=== PATIENT | female | born 1950 | race Caucasian/White ===

== ENCOUNTER 2016-11-25 22:22 | Inpatient (IN) | payer MEDICARE, OTHER ==
[~2016-11-25 22:22] MED LIST: ASPIRIN EC81 MG PO; CALCIUM CARBON600 M2 PO; COMPAZINE10 MG PO; DICYCLOMINE HCL20 M1 PO; EMERGE; HYDROXYCHLOROQ200 M2 PO; IRON1 TA1 PO; LEVAQUIN500 M1 PO; MULTIVITAMINS1 EAC7 PO; NORCO 5-325 TA1 EACH PO; NORCO 5/3251 TAB PO; VITAMIN D3400 UNI5 PO; ZESTRIL5 M1 PO; ZOCOR20 MG PO; ZOFRAN4 M2 PO
[2016-11-25] MEDS ORDERED: DICLOFENAC SODI75 M2 PO (22:53)
[2016-11-26 00:23] LABS: BASO % 0.5 % (0-2); EOS % 0.3 % (0-7); HGB-HEMOGLOBIN 11.2 gm/dl (12.0-15.5); IMMATURE GRANULOCYTES ABSOLUTE 0.01 tho/cmm (0-0.03); IMMATURE GRANULOCYTES PERCENT 0.3 % (0-0.3); LYMPH % 15.3 % (20-45); LYMPH ABSOLUTE COUNT 0.6 tho/cmm (0.8-4.5); MCH (MEAN CORPUSCULAR HGB) 31.7 pg (28.0-32.0); MCHC MEAN CORPUSCULAR HGB CONC 33.9 % (32.0-36.0); MCV (MEAN CELL VOLUME) 93.5 fl (82.0-96.0); MEAN PLATELET VOLUME 10.7 cmc (9.4-12.4); MONO % 5.3 % (0-12); MONOCYTE ABSOLUTE COUNT 0.2 tho/cmm (0.0-1.2); NEUTROPHIL ABSOLUTE COUNT 3.1 tho/cmm (1.6-8.0); NEUTROPHIL-AUTOMATED 3.1 tho/cmm (1.6-8.0); NEUTROPHILS % 78.3 % (40-80); PLATELET COUNT 291 tho/cmm (150-450); RED BLOOD COUNT 3.53 mil/cmm (4.00-5.20); RED CELL DISTRIBUTION WIDTH 12.5 % (12.4-16.4)
[2016-11-26 00:39] LABS: ALB/GLOB RATIO 1.7 (0.8-2.0); ALBUMIN 3.5 g/dl (3.5-5.2); ALKALINE PHOSPHATASE 47 U/L (35-104); ALT/SGPT 10 U/L (0-33); AMYLASE 68 U/L (28-100); ANION GAP 13 mmol/L (5-15); AST/SGOT 13 U/L (0-32); BLOOD UREA NITROGEN 18 mg/dl (6-25); CARBON DIOXIDE-VENOUS 22 mmol/L (22-29); CHLORIDE 98 mmol/L (98-110); CREATININE 1.06 mg/dl (0.67-1.17); GLUCOSE 132 mg/dl (65-120); POTASSIUM 3.5 mmol/L (3.4-5.0); SODIUM 133 mmol/L (135-146); eGFR VALUE FOR BLACK >60 mL/Min
[2016-11-26 00:40] LABS: BILIRUBIN,TOTAL 0.5 mg/dl (0-1.0); LIPASE 69 U/L (13-73)
[2016-11-26 05:59] LABS: HCT-HEMATOCRIT 32.5 % (34.0-49.0); HGB-HEMOGLOBIN 10.9 gm/dl (12.0-15.5); MCH (MEAN CORPUSCULAR HGB) 31.6 pg (28.0-32.0); MCHC MEAN CORPUSCULAR HGB CONC 33.5 % (32.0-36.0); MCV (MEAN CELL VOLUME) 94.2 fl (82.0-96.0); MEAN PLATELET VOLUME 10.8 cmc (9.4-12.4); PLATELET COUNT 198 tho/cmm (150-450); RED BLOOD COUNT 3.45 mil/cmm (4.00-5.20); RED CELL DISTRIBUTION WIDTH 12.6 % (12.4-16.4)
[2016-11-26 06:11] LABS: WHITE BLOOD COUNT 1.3 tho/cmm (4.0-10.0)
[2016-11-26 09:12] LABS: BAND % 43 % (0-20); BAND ABSOLUTE COUNT 0.6 tho/cmm (0-2.0)
[2016-11-26 16:38] LABS: INR 1.3 INR (0.9-1.1); PROTHROMBIN TIME 14.9 SECONDS (9.0-13.6)
[2016-11-26 16:53] LABS: HCT-HEMATOCRIT 31.1 % (34.0-49.0); HGB-HEMOGLOBIN 10.5 gm/dl (12.0-15.5); LYMPH % 12.5 % (20-45); LYMPH ABSOLUTE COUNT 0.3 tho/cmm (0.8-4.5); MCH (MEAN CORPUSCULAR HGB) 31.2 pg (28.0-32.0); MCHC MEAN CORPUSCULAR HGB CONC 33.8 % (32.0-36.0); MCV (MEAN CELL VOLUME) 92.3 fl (82.0-96.0); MEAN PLATELET VOLUME 10.8 cmc (9.4-12.4); MONO % 0.9 % (0-12); NEUTROPHILS % 86.6 % (40-80); PLATELET COUNT 224 tho/cmm (150-450); RED BLOOD COUNT 3.37 mil/cmm (4.00-5.20); RED CELL DISTRIBUTION WIDTH 12.7 % (12.4-16.4)
[2016-11-26 16:54] LABS: WHITE BLOOD COUNT 2.3 tho/cmm (4.0-10.0)
[2016-11-26 16:58] LABS: ALB/GLOB RATIO 1.1 (0.8-2.0); ALBUMIN 2.2 g/dl (3.5-5.2); ALKALINE PHOSPHATASE 28 U/L (35-104); ALT/SGPT 18 U/L (0-33); ANION GAP 11 mmol/L (5-15); AST/SGOT 23 U/L (0-32); BILIRUBIN,TOTAL 0.5 mg/dl (0-1.0); BLOOD UREA NITROGEN 21 mg/dl (6-25); CALCIUM 7.6 mg/dl (8.6-10.2); CARBON DIOXIDE-VENOUS 18 mmol/L (22-29); CHLORIDE 106 mmol/L (98-110); CREATININE 0.98 mg/dl (0.67-1.17); GLUCOSE 157 mg/dl (65-120); POTASSIUM 4.3 mmol/L (3.4-5.0); SODIUM 135 mmol/L (135-146); eGFR VALUE FOR BLACK >60 mL/Min
[2016-11-26 17:13] LABS: PROCALCITONIN 23.24 ng/ml (0.05-0.09)
[2016-11-27 05:35] LABS: HCT-HEMATOCRIT 27.6 % (34.0-49.0); HGB-HEMOGLOBIN 9.3 gm/dl (12.0-15.5); MCH (MEAN CORPUSCULAR HGB) 31.7 pg (28.0-32.0); MCHC MEAN CORPUSCULAR HGB CONC 33.7 % (32.0-36.0); MCV (MEAN CELL VOLUME) 94.2 fl (82.0-96.0); NEUTROPHIL-AUTOMATED 5.5 tho/cmm (1.6-8.0); PLATELET COUNT 207 tho/cmm (150-450); RED BLOOD COUNT 2.93 mil/cmm (4.00-5.20)
[2016-11-27 05:45] LABS: WHITE BLOOD COUNT 6.4 tho/cmm (4.0-10.0)
[2016-11-27 05:48] LABS: ANION GAP 11 mmol/L (5-15); BLOOD UREA NITROGEN 25 mg/dl (6-25); CALCIUM 7.8 mg/dl (8.6-10.2); CARBON DIOXIDE-VENOUS 21 mmol/L (22-29); CHLORIDE 106 mmol/L (98-110); CREATININE 0.86 mg/dl (0.67-1.17); GLUCOSE 153 mg/dl (65-120); POTASSIUM 4.4 mmol/L (3.4-5.0); SODIUM 138 mmol/L (135-146); eGFR VALUE FOR BLACK >60 mL/Min
[2016-11-27 06:50] LABS: BAND % 58 % (0-20); BAND ABSOLUTE COUNT 3.7 tho/cmm (0-2.0); WBC MORPHOLOGY VACUOLES
[2016-11-27 10:40] LABS: TROPONIN T <0.01 ng/ml (<0.01)
[2016-11-27 11:06] LABS: MAGNESIUM 1.7 mg/dl (1.7-2.5); PHOSPHOROUS 2.9 mg/dl (2.7-4.5)
[2016-11-27 14:13] LABS: T4 (THYROXINE) 4.8 ug/dl (4.6-12.0); TSH-THYROID STIMULATING HORM. 1.88 uIU/ml (0.40-5.50)
[2016-11-28 05:09] LABS: EOS % 0.2 % (0-7); HCT-HEMATOCRIT 24.4 % (34.0-49.0); HGB-HEMOGLOBIN 8.2 gm/dl (12.0-15.5); IMMATURE GRANULOCYTES ABSOLUTE 0.03 tho/cmm (0-0.03); IMMATURE GRANULOCYTES PERCENT 0.5 % (0-0.3); LYMPH % 8.4 % (20-45); LYMPH ABSOLUTE COUNT 0.5 tho/cmm (0.8-4.5); MCH (MEAN CORPUSCULAR HGB) 31.5 pg (28.0-32.0); MCHC MEAN CORPUSCULAR HGB CONC 33.6 % (32.0-36.0); MCV (MEAN CELL VOLUME) 93.8 fl (82.0-96.0); MEAN PLATELET VOLUME 10.8 cmc (9.4-12.4); MONO % 8.7 % (0-12); MONOCYTE ABSOLUTE COUNT 0.6 tho/cmm (0.0-1.2); NEUTROPHIL ABSOLUTE COUNT 5.3 tho/cmm (1.6-8.0); NEUTROPHIL-AUTOMATED 5.3 tho/cmm (1.6-8.0); NEUTROPHILS % 82.2 % (40-80); PLATELET COUNT 202 tho/cmm (150-450); WHITE BLOOD COUNT 6.5 tho/cmm (4.0-10.0)
[2016-11-28 05:28] LABS: ALKALINE PHOSPHATASE 32 U/L (35-104); ALT/SGPT 11 U/L (0-33); ANION GAP 7 mmol/L (5-15); AST/SGOT 12 U/L (0-32); BILIRUBIN,TOTAL 0.3 mg/dl (0-1.0); BLOOD UREA NITROGEN 13 mg/dl (6-25); CALCIUM 7.8 mg/dl (8.6-10.2); CARBON DIOXIDE-VENOUS 24 mmol/L (22-29); CHLORIDE 104 mmol/L (98-110); CREATININE 0.61 mg/dl (0.67-1.17); GLUCOSE 95 mg/dl (65-120); PHOSPHOROUS 1.8 mg/dl (2.7-4.5); POTASSIUM 3.8 mmol/L (3.4-5.0); SODIUM 135 mmol/L (135-146); eGFR VALUE FOR BLACK >60 mL/Min
[2016-11-29 08:47] LABS: BASO % 0.1 % (0-2); EOS % 0.4 % (0-7); IMMATURE GRANULOCYTES ABSOLUTE 0.02 tho/cmm (0-0.03); IMMATURE GRANULOCYTES PERCENT 0.2 % (0-0.3); LYMPH % 6.3 % (20-45); LYMPH ABSOLUTE COUNT 0.6 tho/cmm (0.8-4.5); MCH (MEAN CORPUSCULAR HGB) 32.1 pg (28.0-32.0); MCHC MEAN CORPUSCULAR HGB CONC 34.6 % (32.0-36.0); MCV (MEAN CELL VOLUME) 92.9 fl (82.0-96.0); MEAN PLATELET VOLUME 10.2 cmc (9.4-12.4); MONO % 7.9 % (0-12); MONOCYTE ABSOLUTE COUNT 0.8 tho/cmm (0.0-1.2); NEUTROPHIL ABSOLUTE COUNT 8.1 tho/cmm (1.6-8.0); NEUTROPHIL-AUTOMATED 8.1 tho/cmm (1.6-8.0); NEUTROPHILS % 85.1 % (40-80); PLATELET COUNT 243 tho/cmm (150-450); RED CELL DISTRIBUTION WIDTH 12.7 % (12.4-16.4); WHITE BLOOD COUNT 9.5 tho/cmm (4.0-10.0)
[2016-11-29 09:03] LABS: ANION GAP 8 mmol/L (5-15); BLOOD UREA NITROGEN 9 mg/dl (6-25); CALCIUM 7.7 mg/dl (8.6-10.2); CARBON DIOXIDE-VENOUS 27 mmol/L (22-29); CHLORIDE 100 mmol/L (98-110); CREATININE 0.54 mg/dl (0.67-1.17); GLUCOSE 123 mg/dl (65-120); SODIUM 135 mmol/L (135-146); eGFR VALUE FOR BLACK >60 mL/Min
[2016-11-30 05:34] LABS: BASO % 0.1 % (0-2); EOS % 4.3 % (0-7); EOSINOPHIL ABSOLUTE COUNT 0.3 tho/cmm (0.0-0.7); HCT-HEMATOCRIT 24.2 % (34.0-49.0); HGB-HEMOGLOBIN 8.2 gm/dl (12.0-15.5); IMMATURE GRANULOCYTES ABSOLUTE 0.02 tho/cmm (0-0.03); IMMATURE GRANULOCYTES PERCENT 0.3 % (0-0.3); LYMPH % 13.5 % (20-45); LYMPH ABSOLUTE COUNT 0.9 tho/cmm (0.8-4.5); MCH (MEAN CORPUSCULAR HGB) 31.7 pg (28.0-32.0); MCHC MEAN CORPUSCULAR HGB CONC 33.9 % (32.0-36.0); MCV (MEAN CELL VOLUME) 93.4 fl (82.0-96.0); MEAN PLATELET VOLUME 9.9 cmc (9.4-12.4); MONO % 13.1 % (0-12); MONOCYTE ABSOLUTE COUNT 0.9 tho/cmm (0.0-1.2); NEUTROPHIL ABSOLUTE COUNT 4.6 tho/cmm (1.6-8.0); NEUTROPHIL-AUTOMATED 4.6 tho/cmm (1.6-8.0); NEUTROPHILS % 68.7 % (40-80); PLATELET COUNT 227 tho/cmm (150-450); RED BLOOD COUNT 2.59 mil/cmm (4.00-5.20); WHITE BLOOD COUNT 6.7 tho/cmm (4.0-10.0)
[2016-11-30 05:46] LABS: ANION GAP 10 mmol/L (5-15); BLOOD UREA NITROGEN 7 mg/dl (6-25); CALCIUM 7.5 mg/dl (8.6-10.2); CARBON DIOXIDE-VENOUS 26 mmol/L (22-29); CHLORIDE 102 mmol/L (98-110); CREATININE 0.55 mg/dl (0.67-1.17); GLUCOSE 87 mg/dl (65-120); MAGNESIUM 1.7 mg/dl (1.7-2.5); POTASSIUM 3.4 mmol/L (3.4-5.0); SODIUM 138 mmol/L (135-146); eGFR VALUE FOR BLACK >60 mL/Min
[2016-12-01 05:50] LABS: ANION GAP 8 mmol/L (5-15); BLOOD UREA NITROGEN 6 mg/dl (6-25); CALCIUM 7.6 mg/dl (8.6-10.2); CARBON DIOXIDE-VENOUS 28 mmol/L (22-29); CHLORIDE 98 mmol/L (98-110); CREATININE 0.55 mg/dl (0.67-1.17); GLUCOSE 95 mg/dl (65-120); MAGNESIUM 1.7 mg/dl (1.7-2.5); POTASSIUM 3.8 mmol/L (3.4-5.0); SODIUM 134 mmol/L (135-146); eGFR VALUE FOR BLACK >60 mL/Min
[2016-12-01 06:03] LABS: BASO % 0.2 % (0-2); EOS % 4.9 % (0-7); EOSINOPHIL ABSOLUTE COUNT 0.3 tho/cmm (0.0-0.7); HGB-HEMOGLOBIN 7.9 gm/dl (12.0-15.5); IMMATURE GRANULOCYTES ABSOLUTE 0.02 tho/cmm (0-0.03); IMMATURE GRANULOCYTES PERCENT 0.4 % (0-0.3); LYMPH % 18.5 % (20-45); LYMPH ABSOLUTE COUNT 1.1 tho/cmm (0.8-4.5); MCH (MEAN CORPUSCULAR HGB) 31.1 pg (28.0-32.0); MCHC MEAN CORPUSCULAR HGB CONC 33.3 % (32.0-36.0); MCV (MEAN CELL VOLUME) 93.3 fl (82.0-96.0); MEAN PLATELET VOLUME 9.9 cmc (9.4-12.4); MONO % 13.9 % (0-12); MONOCYTE ABSOLUTE COUNT 0.8 tho/cmm (0.0-1.2); NEUTROPHIL ABSOLUTE COUNT 3.5 tho/cmm (1.6-8.0); NEUTROPHIL-AUTOMATED 3.5 tho/cmm (1.6-8.0); NEUTROPHILS % 62.1 % (40-80); PLATELET COUNT 228 tho/cmm (150-450); RED BLOOD COUNT 2.54 mil/cmm (4.00-5.20); RED CELL DISTRIBUTION WIDTH 13.2 % (12.4-16.4); WHITE BLOOD COUNT 5.7 tho/cmm (4.0-10.0)
[2016-12-01 06:10] LABS: HCT-HEMATOCRIT 23.7 % (34.0-49.0)
[2016-12-02 04:06] LABS: BASO % 0.3 % (0-2); EOS % 4.5 % (0-7); EOSINOPHIL ABSOLUTE COUNT 0.3 tho/cmm (0.0-0.7); HCT-HEMATOCRIT 24.9 % (34.0-49.0); HGB-HEMOGLOBIN 8.2 gm/dl (12.0-15.5); IMMATURE GRANULOCYTES ABSOLUTE 0.03 tho/cmm (0-0.03); IMMATURE GRANULOCYTES PERCENT 0.5 % (0-0.3); LYMPH % 16.6 % (20-45); MCH (MEAN CORPUSCULAR HGB) 31.2 pg (28.0-32.0); MCHC MEAN CORPUSCULAR HGB CONC 32.9 % (32.0-36.0); MCV (MEAN CELL VOLUME) 94.7 fl (82.0-96.0); MEAN PLATELET VOLUME 9.7 cmc (9.4-12.4); MONO % 11.1 % (0-12); MONOCYTE ABSOLUTE COUNT 0.7 tho/cmm (0.0-1.2); PLATELET COUNT 241 tho/cmm (150-450); RED BLOOD COUNT 2.63 mil/cmm (4.00-5.20); RED CELL DISTRIBUTION WIDTH 13.4 % (12.4-16.4)
[2016-12-02] MEDS ORDERED: DIFLUCAN100 M1 PO (17:07)
[2016-12-02] MEDS ORDERED: AMIODARONE HCL200 M1 PO (17:08)
[2016-12-02] MEDS ORDERED: NORCO 5-325 TA1 EACH PO (17:11)
[2016-12-02] MEDS ORDERED: PROTONIX40 M2 PO (17:13)
== END 2016-12-02 17:52 | DRG 330 ==
LOC: EDMED 22:22 → EMR2 11-26 04:16 → 5WD 11-26 04:23 → CCU 11-26 11:39 → ORW 11-26 13:59 → CCU 11-26 15:18 → 5WF 11-28 17:20
PROVIDERS: Family Medicine; Internal Medicine; Internal Medicine Cardiovascular Disease; Internal Medicine Critical Care Medicine; Nurse Practitioner Acute Care; Surgery; ADMIT Hospitalist
PROC: 0DB68ZX Excision of Stomach, Via Natural or Artificial Opening Endoscopic, Diagnostic (ICD-10-PCS; principal; 2016-11-26)
PROC: 0DU907Z Supplement Duodenum with Autologous Tissue Substitute, Open Approach (ICD-10-PCS; 2016-11-26)
PROC: 3E0F7GC Introduction of Other Therapeutic Substance into Respiratory Tract, Via Natural or Artificial Opening (ICD-10-PCS; 2016-11-26)
PROC: 0W9F00Z Drainage of Abdominal Wall with Drainage Device, Open Approach (ICD-10-PCS; 2016-11-26)
PROC: B548ZZA Ultrasonography of Superior Vena Cava, Guidance (ICD-10-PCS; 2016-11-27)
PROC: 02HV33Z Insertion of Infusion Device into Superior Vena Cava, Percutaneous Approach (ICD-10-PCS; 2016-11-27)
PROC: B246ZZZ Ultrasonography of Right and Left Heart (ICD-10-PCS; 2016-11-27)
DX: K26.1 Acute duodenal ulcer with perforation (principal); D62 Acute posthemorrhagic anemia; I48.0 Paroxysmal atrial fibrillation; D70.9 Neutropenia, unspecified; R13.10 Dysphagia, unspecified; D64.89 Other specified anemias; R63.4 Abnormal weight loss; Z68.22 Body mass index [BMI] 22.0-22.9, adult; E78.5 Hyperlipidemia, unspecified; M19.90 Unspecified osteoarthritis, unspecified site; K21.9 Gastro-esophageal reflux disease without esophagitis; Z79.1 Long term (current) use of non-steroidal anti-inflammatories (NSAID); I10 Essential (primary) hypertension; E87.6 Hypokalemia; T39.395A Adverse effect of other nonsteroidal anti-inflammatory drugs [NSAID], initial encounter; I95.81 Postprocedural hypotension; I77.3 Arterial fibromuscular dysplasia
CPT/HCPCS: C1751; C1758; C9113; J0282; J0780; J1170; J1450; J1650; J2250; J2270; J2405; J2543; J2795; J3475; J7030; J7050; Q9967